=== PATIENT | female | born 1970 | race Caucasian/White ===

== ENCOUNTER 2019-05-30 09:27 | Emergency (ER) | payer OTHER, MEDICARE, MEDICAID ==
[~2019-05-30] VITALS: Ht 167.6 cm; Wt 90.7 kg
--- NOTE | ~2019-05-30 | EKG ---
[place], [place] ELECTROCARDIOGRAM REPORT NAME: DENISE PHAM UNIT #: [id number] ROOM: DOCTOR: EPIPHANY DRAFT REPORT BIRTHDATE: [birth year] [facility] Test Date: 2019-05-30 Test Time: 09:51:15 Pat Name: DENISE PHAM Department: Room: Gender: F Stenciling Machine Tender: Ora Lira : 1970 Requested By: TERESA العلي DNP Order Number: [id number] Reading MD: Hal Rodríguez MD Measurements Intervals [place] Rate: 60 P: 22 FL: 129 QRS: 53 QRSD: 88 T: 40 QT: 409 QTc: 409 Interpretive Statements Sinus rhythm Low voltage, precordial leads Baseline wander in lead(s) V1 No previous ECG available for comparison Electronically Signed On 05-30-2019 14:41:09 PDT by Hal Rodríguez MD CM:EKGRPT:ELECTROCARDIOGRAM REPORT [id number] TERESA NINA DRAFT REPORT TERESA العلي DNP
[~2019-05-30 09:27] MED LIST: CATAFLAM50 MG PO; CORDROL20 MG PO; DAYPRO600 M1 PO; DIFLUCAN150 MG PO; HYDROCODONE BIT1 T11 PO; IBU600 MG PO; MEDROL DOSEPAK4 MG PO; NASONEX0.05 MG/AC NAS; NUVARING1 ICR VG; Orphenadrine C100 MG PO; PERCOCET 325 MG1 TA2 PO; ROBAXIN-750750 MG PO; ROBAXIN500 MG PO; ROBAXIN750 MG PO; ROBITUSSIN AC 110 ML PO; SYNTHROID0.112 MG PO; TESSALON PERLE200 MG PO; TRAMADOL50 MG PO; VIBRAMYCIN100 MG PO; VICODIN 5/500 505 MG PO; VITAMIN B COMPL1 T12 PO; VITAMIN E PO; ZITHROMAX Z PA250 MG PO; ZITHROMAX250 MG PO; [UNRECOGNIZED DRUG - OTHER] MM
[2019-05-30 10:23] LABS: BASO % 0.6 % (0.0-1.0); EOS # 0.3 10*3/uL (0.0-0.4); EOS % 4.6 % (1.0-4.0); LYMPH # 1.7 10*3/uL (1.3-4.4); LYMPH % 26.6 % (27.0-41.0); MEAN CELL VOLUME 103.7 fl (81.0-99.0); MEAN CORPUSCULAR HGB 34.6 pg (27.0-31.0); MEAN CORPUSCULAR HGB CONC 33.3 g/dl (33.0-37.0); MEAN PLATELET VOLUME 12.7 fl (9.6-12.3); MONO # 0.5 10*3/uL (0.1-1.0); MONO % 8.2 % (3.0-9.0); NEUT # 3.9 10*3/uL (2.3-7.9); NEUT % 59.7 % (47.0-73.0); PLATELET COUNT AUTOMATED 134 10*3/uL (130-400); RED BLOOD COUNT 3.76 10*6/uL (4.10-5.10); RED CELL DISTRI WIDTH 12.4 % (0-14.5); WHITE BLOOD COUNT 6.5 10*3/uL (4.8-10.8)
[2019-05-30 10:37] LABS: ACT PARTIAL THROMBO TIME 26.6 SECONDS (20.0-32.1)
[2019-05-30 10:40] LABS: ALKALINE PHOSPHATASE 62 U/L (45-117); BUN 14 mg/dl (7-24); CHLORIDE 106 mmol/L (98-107); LIPASE 69 U/L (73-393); SGOT/AST 14 IU/L (3-35); SGPT/ALT 21 U/L (12-78); SODIUM 141 mmol/L (136-145); TOTAL PROTEIN 6.9 gm/dL (6.4-8.2)
[2019-05-30 10:44] LABS: CREATININE 0.76 mg/dL (0.55-1.02)
[2019-05-30 10:45] LABS: TROPONIN I < 0.015 ng/ml (<0.045)
[2019-05-30 11:17] LABS: BILIRUBIN NEGATIVE (NEGATIVE); BLOOD NEGATIVE (NEGATIVE); CLARITY SL CLOUDY (CLEAR); COLOR YELLOW (YELLOW); GLUCOSE NEGATIVE (NEGATIVE); KETONE NEGATIVE (NEGATIVE); LEUKO ESTERASE NEGATIVE (NEGATIVE); NITRITE NEGATIVE (NEGATIVE); PH 6.5 (5.0-9.0); SPECIFIC GRAVITY <= 1.005 (1.005-1.030); UROBILINOGEN 0.2 E.U./dl (0.2-1.0)
[2019-05-30 11:35] LABS: BACTERIA TRACE; EPITHELIAL CELLS 15-20; WBC 0-2 wbc/hpf (0-5)
== END 2019-05-30 11:43 | disposition home or self-care (01) ==
LOC: ED 09:27
PROVIDERS: Nurse Practitioner Family
DX: B34.9 Viral infection, unspecified (principal); F17.200 Nicotine dependence, unspecified, uncomplicated; E07.9 Disorder of thyroid, unspecified; Z98.890 Other specified postprocedural states; Z79.899 Other long term (current) drug therapy; Z88.0 Allergy status to penicillin

== ENCOUNTER → 2019-09-21 | Outpatient (CLI) | payer OTHER | END | disposition home or self-care (01) | LOC: RAD 11:38 | DX: M25.511 Pain in right shoulder (principal) ==

== ENCOUNTER 2024-05-11 19:59 | Emergency (ER) | payer OTHER, MEDICAID ==
[~2024-05-11] VITALS: Ht 167.6 cm; Wt 81.6 kg
[2024-05-11] MEDS ORDERED: Ketorolac Tromethamine 30 MG/ML VIAL IV ONE (20:30)
[2024-05-11] MEDS ORDERED: Ondansetron Hydrochloride 4 MG/2 ML VIAL IV ONE (20:30)
[2024-05-11] MEDS ORDERED: SODIUM CHLORIDE 0.9% 1,000 ML IV ONE (20:30)
[2024-05-11 20:47] LABS: BASO % 0.2 % (0.0-1.0); EOS # 0.2 10*3/uL (0.0-0.4); LYMPH # 2.3 10*3/uL (1.3-4.4); LYMPH % 18.7 % (27.0-41.0); MEAN CELL VOLUME 99.5 fl (81.0-99.0); MEAN CORPUSCULAR HGB 33.3 pg (27.0-31.0); MEAN CORPUSCULAR HGB CONC 33.5 g/dl (33.0-37.0); MEAN PLATELET VOLUME 11.7 fl (9.6-12.3); MONO # 1.1 10*3/uL (0.1-1.0); MONO % 8.6 % (3.0-9.0); NEUT # 8.6 10*3/uL (2.3-7.9); NEUT % 70.3 % (47.0-73.0); PLATELET COUNT AUTOMATED 187 10*3/uL (130-400); RED BLOOD COUNT 4.02 10*6/uL (4.10-5.10); RED CELL DISTRI WIDTH 12.5 % (0-14.5); WHITE BLOOD COUNT 12.2 10*3/uL (4.8-10.8)
[2024-05-11 21:03] LABS: ALKALINE PHOSPHATASE 71 U/L (46-116); BUN 10 mg/dl (9-23); CHLORIDE 107 mmol/L (98-107); LIPASE 19 U/L (12-53); POTASSIUM 3.7 mmol/L (3.4-5.1); SGPT/ALT 34 U/L (5-49); TOTAL PROTEIN 6.4 gm/dL (6.0-8.0)
[2024-05-11] MEDS ORDERED: Metoclopramide Hydrochloride 10 MG/2 ML AMP IV ONE (21:55)
[2024-05-11] MEDS ORDERED: METOCLOPRAMIDE5 MG PO (22:47)
== END 2024-05-11 22:52 | disposition home or self-care (01) ==
LOC: ED 19:59
PROVIDERS: Physician Assistant Medical
DX: R11.2 Nausea with vomiting, unspecified (principal); T43.215A Adverse effect of selective serotonin and norepinephrine reuptake inhibitors, initial encounter; R19.7 Diarrhea, unspecified; Z88.0 Allergy status to penicillin; Z98.890 Other specified postprocedural states; Y92.89 Other specified places as the place of occurrence of the external cause

== ENCOUNTER 2024-05-23 13:35 | Emergency (ER) | payer OTHER, MEDICAID ==
[~2024-05-23] VITALS: Ht 167.6 cm; Wt 86.2 kg
[~2024-05-23 13:35] MED LIST changes: +METOCLOPRAMIDE5 MG PO
[2024-05-23] MEDS ORDERED: SODIUM CHLORIDE 0.9% 1,000 ML IV ONE (13:50)
[2024-05-23] MEDS ORDERED: Metoclopramide Hydrochloride 10 MG/2 ML AMP IV ONE (13:50)
[2024-05-23 14:19] LABS: BASO % 0.3 % (0.0-1.0); EOS # 0.3 10*3/uL (0.0-0.4); EOS % 2.3 % (1.0-4.0); HEMATOCRIT 39.7 % (37.0-47.0); LYMPH # 2.1 10*3/uL (1.3-4.4); MEAN CELL VOLUME 97.8 fl (81.0-99.0); MEAN CORPUSCULAR HGB CONC 33.8 g/dl (33.0-37.0); MEAN PLATELET VOLUME 11.7 fl (9.6-12.3); MONO # 0.9 10*3/uL (0.1-1.0); MONO % 6.9 % (3.0-9.0); PLATELET COUNT AUTOMATED 242 10*3/uL (130-400); RED BLOOD COUNT 4.06 10*6/uL (4.10-5.10); RED CELL DISTRI WIDTH 12.6 % (0-14.5); WHITE BLOOD COUNT 12.4 10*3/uL (4.8-10.8)
[2024-05-23 14:20] LABS: BILIRUBIN Negative (Negative); BLOOD Negative (Negative); CLARITY Clear (Clear); COLOR Yellow (Yellow); GLUCOSE Negative (Negative); KETONE Negative (Negative); LEUKO ESTERASE Negative (Negative); NITRITE Negative (Negative); PH 5.5 (4.5-8.0); SPECIFIC GRAVITY 1.015 (1.001-1.030); UROBILINOGEN 0.2 E.U./dl (0.0-1.0)
[2024-05-23 14:35] LABS: RBC 0-2 rbc/hpf (0-2); WBC 0-2 wbc/hpf (0-5)
[2024-05-23 14:37] LABS: ALKALINE PHOSPHATASE 72 U/L (46-116); BUN 11 mg/dl (9-23); CHLORIDE 108 mmol/L (98-107); LIPASE 27 U/L (12-53); POTASSIUM 3.8 mmol/L (3.4-5.1); SGPT/ALT 38 U/L (5-49); TOTAL PROTEIN 6.5 gm/dL (6.0-8.0)
== END 2024-05-23 16:30 | disposition home or self-care (01) ==
LOC: ED 13:35
PROVIDERS: Physician Assistant Medical
DX: R11.2 Nausea with vomiting, unspecified (principal); R19.7 Diarrhea, unspecified; Z88.0 Allergy status to penicillin; Z98.890 Other specified postprocedural states; F17.200 Nicotine dependence, unspecified, uncomplicated

== ENCOUNTER 2024-09-20 22:56 | Emergency (ER) | payer OTHER, MEDICAID ==
[~2024-09-20] VITALS: Ht 167.6 cm; Wt 81.6 kg
[2024-09-20] MEDS ORDERED: IOHEXOL 300 MG/ML 100 ML VIAL IV ONE (23:55)
[2024-09-21 00:26] LABS: BASO % 0.2 % (0.0-1.0); EOS # 0.1 10*3/uL (0.0-0.4); EOS % 0.4 % (1.0-4.0); HEMATOCRIT 37.7 % (37.0-47.0); MEAN CELL VOLUME 99.2 fl (81.0-99.0); MEAN CORPUSCULAR HGB 32.6 pg (27.0-31.0); MEAN CORPUSCULAR HGB CONC 32.9 g/dl (33.0-37.0); MONO # 0.8 10*3/uL (0.1-1.0); MONO % 6.1 % (3.0-9.0); NEUT # 10.9 10*3/uL (2.3-7.9); NEUT % 81.6 % (47.0-73.0); PLATELET COUNT AUTOMATED 176 10*3/uL (130-400); RED CELL DISTRI WIDTH 12.5 % (0-14.5); WHITE BLOOD COUNT 13.3 10*3/uL (4.8-10.8)
[2024-09-21 01:09] LABS: BUN 17 mg/dl (9-23); CHLORIDE 108 mmol/L (98-107); LIPASE 27 U/L (12-53); POTASSIUM 3.8 mmol/L (3.4-5.1)
[2024-09-21] MEDS ORDERED: HYDROmorphONE Hydrochloride 1 MG/ML SYR IV ONE (03:30)
[2024-09-21] MEDS ORDERED: Ondansetron Hydrochloride 4 MG/2 ML VIAL IV ONE (03:30)
[2024-09-21] MEDS ORDERED: COLACE100 MG PO (06:29)
[2024-09-21] MEDS ORDERED: PROCTOFOAM15 GM T (06:29)
== END 2024-09-21 06:34 | disposition home or self-care (01) ==
LOC: ED 22:56
PROVIDERS: Emergency Medicine
DX: K59.00 Constipation, unspecified (principal); K62.89 Other specified diseases of anus and rectum; E03.9 Hypothyroidism, unspecified; Z87.891 Personal history of nicotine dependence; Z88.0 Allergy status to penicillin; Z98.890 Other specified postprocedural states

== ENCOUNTER 2024-12-19 09:03 | Emergency (ER) | payer OTHER, MEDICAID ==
[~2024-12-19 09:03] MED LIST changes: +COLACE100 MG PO; +PROCTOFOAM15 GM T
[2024-12-19] MEDS ORDERED: VITAMIN D350 MC2 PO (09:13)
[2024-12-19] MEDS ORDERED: LEVOTHYROXINE100 MC1 PO (09:13)
[2024-12-19] MEDS ORDERED: Ketorolac Tromethamine 15 MG/ML VIAL IM ONE (09:20)
[2024-12-19] MEDS ORDERED: methylPREDNISolone sod succ 125 MG VIAL IM ONE (09:20)
[2024-12-19] MEDS ORDERED: METHOCARBAMOL 500 MG TAB PO ONE (09:20)
[2024-12-19] MEDS ORDERED: METHOCARBAMOL500 M1 PO (10:07)
[2024-12-19] MEDS ORDERED: NAPROSYN500 MG PO (10:07)
[2024-12-19] MEDS ORDERED: PREDNISONE50 MG PO (10:07)
== END 2024-12-19 10:10 | disposition home or self-care (01) ==
LOC: ED 09:03
DX: M62.830 Muscle spasm of back (principal); M54.50 Low back pain, unspecified; E03.9 Hypothyroidism, unspecified; Z98.890 Other specified postprocedural states; Z88.0 Allergy status to penicillin; Z79.899 Other long term (current) drug therapy

== ENCOUNTER 2025-05-22 09:01 | Emergency (ER) | payer OTHER, MEDICAID ==
[~2025-05-22] VITALS: Ht 167.6 cm; Wt 77.1 kg
[~2025-05-22 09:01] MED LIST changes: +LEVOTHYROXINE100 MC1 PO; +METHOCARBAMOL500 M1 PO; +NAPROSYN500 MG PO; +PREDNISONE50 MG PO; +VITAMIN D350 MC2 PO
[2025-05-22] MEDS ORDERED: Tdap Vaccine 0.5 ML SYR (Adult Vaccine) IM ONE (09:45)
[2025-05-22] MEDS ORDERED: CEPHALEXIN500 M1 PO (11:13)
[2025-05-22] MEDS ORDERED: DERMABOND 1 EA APPL T ONE (11:39)
== END 2025-05-22 11:43 | disposition home or self-care (01) ==
LOC: ED 09:01
DX: S61.213A Laceration without foreign body of left middle finger without damage to nail, initial encounter (principal); E03.9 Hypothyroidism, unspecified; F17.210 Nicotine dependence, cigarettes, uncomplicated; Z98.890 Other specified postprocedural states; Z88.0 Allergy status to penicillin; W23.1XXA Caught, crushed, jammed, or pinched between stationary objects, initial encounter; Y93.89 Activity, other specified; Y92.89 Other specified places as the place of occurrence of the external cause; Y99.8 Other external cause status